=== PATIENT | female | born 1960 | race American Indian/Alaskan Native ===

== ENCOUNTER 2020-08-20 12:56 | Outpatient (CLI) | payer BC ==
--- NOTE | 2020-08-20 14:14 | Mammography Report ---
DIGITAL DIAGNOSTIC MAMMOGRAM WITH CAD CONVENTIONAL, 08/20/2020 CLINICAL INFORMATION / INDICATION: Postclip mammogram following right breast ultrasound-guided biops y. TECHNIQUE: Digital right mammographic imaging was performed. This examination was interpreted with the benefit of Computer-aided Detection analysis. COMPARISON: Prior mammogram 06/19/2020 FINDINGS: Breast Density: The breasts are heterogeneously dense, which may obscure small masses. Postbiopsy mammogram reveals a biopsy clip appropriately positioned at site of previously described m ass in the 2 to 3:00 position of the right breast, middle to posterior depth. IMPRESSION: 1. Appropriately positioned biopsy clip following right breast ultrasound-guided biopsy. Follow up recommendation: No recall. Post biopsy imaging. A "normal" or negative report should not discourage follow up or biopsy of a clinically significant f inding. A written summary of these findings will be mailed to the patient. The patient will be entered into a mammography reporting system which will generate a reminder letter for the patient's next appointmen t at the appropriate interval. According to the [employer], yearly mammograms are recommended starting at age 40 and continuing as long as a woman is in good health. Breast MRI is recommended for women with an maxime roximately 20-25% or greater lifetime risk of breast cancer, including women with a strong family his tory of breast or ovarian cancer and women who have been treated for Hodgkin's disease. Signer Name: Elham Goldman MD Signed: 08/20/2020 2:10 PM Workstation Name: [id number]
--- NOTE | 2020-08-20 14:15 | Ultrasound Report ---
ULTRASOUND GUIDED RIGHT BREAST BIOPSY, 08/20/2020 CLINICAL INFORMATION / INDICATION: ABNORMAL MAMMO. History presents for right breast ultrasound-guide d biopsy. COMPARISON: Prior outside mammogram and right breast ultrasound 07/08/2020 PROCEDURE: Risks, benefits, and indications to the procedure were discussed with the patient in detail, includin g bleeding, infection, hematoma formation, and inadequate tissue sampling. The patient agreed to proc eed with both verbal and written consent. A timeout procedure was performed with two patient identifi ers. The breast was prepped and draped in the usual sterile fashion. Lidocaine 1% with and without epineph rine were used for local anesthesia. Under direct ultrasound guidance, multiple core samples were obt ained of the mass in the right breast 2:30 position located 8 cm from the nipple. A biopsy marker wa s then placed. Biopsy device was removed and hemostasis achieved with manual pressure. A sterile dres sing was applied to the skin. The patient tolerated the procedure without difficulty. No complications were encountered. Postbiopsy instructions were discussed with the patient and given in writing. Specimens were sent to pathology. IMPRESSION: 1. Technically successful ultrasound guided right breast biopsy. Biopsy results are pending and will be reported in an addendum. Signer Name: Elham Goldman MD Signed: 08/20/2020 2:11 PM Workstation Name: [id number]
== END 2020-08-20 12:57 | disposition home or self-care (01) ==
LOC: SPVWC 12:56
PROVIDERS: ATTEND Surgery
DX: N63.12 Unspecified lump in the right breast, upper inner quadrant (principal); N60.31 Fibrosclerosis of right breast; N64.89 Other specified disorders of breast
CPT/HCPCS: 88305

== ENCOUNTER 2020-10-08 06:26 | Day surgery (SDC) | payer BC ==
[~2020-10-08 06:26] MED LIST: BACTERIOSTATIC SODIUM CHLORIDE 0.9% 30 ML VIAL INFILTRATI ONE; ceFAZolin/Water 2 GM/20 ML 2 GM/20 ML SYRINGE IV NR
[2020-10-08] MEDS ORDERED: LIDOCAINE (1%) 10 MG/1 ML VIAL 20 ML MDV ONE (07:12)
[2020-10-08] MEDS ORDERED: BUPIVACAINE/PF (0.5%) 5 MG/1 ML 30 ML VIAL INFILTRATI ONE ×3 (07:12→08:30)
[2020-10-08] MEDS ORDERED: MIDAZOLAM 2 MG/2 ML INJ ONE (07:28)
[2020-10-08] MEDS ORDERED: LACTATED RINGERS 1,000 ML ONE (07:28)
--- NOTE | 2020-10-08 07:29 | Anesthesia Day of Surgery ---
Anesthesia Day of Surgery - Day of Surgery Patient Examined: Yes Patient H&P Reviewed: Yes Patient is NPO: Yes Cardiac Clearance: Yes (From PCP)
[2020-10-08] MEDS ORDERED: ONDANSETRON 4 MG/2 ML INJ IV PRN (07:30)
[2020-10-08] MEDS ORDERED: LACTATED RINGERS 1,000 ML IV SCH (07:30)
[2020-10-08] MEDS ORDERED: dexAMETHasone 20 MG/5 ML VIAL ONE (07:30)
[2020-10-08] MEDS ORDERED: ONDANSETRON 4 MG/2 ML INJ ONE (07:30)
[2020-10-08] MEDS ORDERED: HYDROmorphone 1 MG/1 ML INJ IV PRN ×2 (07:30)
--- NOTE | 2020-10-08 07:30 | Anesthesia Consultation ---
Anesthesia Consult and Med Hx Date of service: 10/08/20 - Airway Anesthetic Teeth Evaluation: Chipped, Caps ROM Head & Neck: Adequate Mental/Hyoid Distance: Adequate Mallampati Class: Class II Intubation Access Assessment: Good - Pre-Operative Health Status ASA Pre-Surgery Classification: ASA2 Proposed Anesthetic Plan: General - Pulmonary Hx Asthma: Yes (Last rescue med 1 year ago) Hx Respiratory Symptoms: No (+2FS) - Cardiovascular System Hx Hypertension: Yes - Central Nervous System Hx Psychiatric Problems: No - Gastrointestinal Hx Gastroesophageal Reflux Disease: No - Endocrine Hx Renal Disease: No Hx Liver Disease: No Hx Non-Insulin Dependent Diabetes: No - Hematic Hx Sickle Cell Disease: No - Other Systems Hx Alcohol Use: Yes (Occas) Hx Cancer: No Hx Obesity: Yes
[2020-10-08] MEDS ORDERED: ePHEDrine SULFATE 50 MG/1 ML INJ ONE (07:35)
[2020-10-08] MEDS ORDERED: HYDROmorphone 1 MG/1 ML INJ ONE (07:38)
[2020-10-08] MEDS ORDERED: propofoL 200 MG/20 ML VIAL IV ONE (07:38)
[2020-10-08] MEDS ORDERED: SUCCINYLCHOLINE CHLORIDE 200 MG/10 ML INJ MDV ONE (07:39)
[2020-10-08] MEDS ORDERED: GLYCOPYRROLATE 0.4 MG/2 ML INJ ONE (07:39)
[2020-10-08] MEDS ORDERED: PHENYLEPHRINE/NS 1,000 MCG/10 ML SYRINGE (OR USE) IV ONE (07:39)
[2020-10-08] MEDS ORDERED: LIDOCAINE MPF (2%) 20 MG/1 ML VIAL 5 ML ONE (07:39)
[2020-10-08] MEDS ORDERED: LIDOCAINE (1%) 10 MG/1 ML VIAL 20 ML MDV INFILTRATI ONE ×2 (07:40→08:30)
[2020-10-08] MEDS ORDERED: WATER FOR IRRIG STERILE 1,500 ML BOTTLE IR ONE ×2 (07:41→09:11)
[2020-10-08] MEDS ORDERED: MIDAZOLAM 2 MG/2 ML INJ IV NR (08:00)
--- NOTE | 2020-10-08 09:47 | Short Stay Summary ---
Short Stay Documentation Date of service: 10/08/20 - History H&P: obtained from office - Allergies and Medications Current Medications: Allergies aspirin Allergy (Verified 09/30/20 13:21) Hives codeine Allergy (Verified 09/30/20 13:21) N&V Home Medications Medication Instructions Recorded Confirmed Last Taken Type Albuterol Sulfate [Proair 90 mcg IH PRN 10/08/20 10/08/20 9 Months Ago History Respiclick] ~01/08/20 Azelastine 0.1% (Nf) [Astelin (Nf)] 2 spray BN BID 10/08/20 10/08/20 1 Week Ago History ~10/01/20 Azelastine/Fluticasone 1 puff PO DAILY 10/08/20 10/08/20 1 Week Ago History [Azelastin-Flutic 137-50Mcg Spr] ~10/01/20 Fluticasone/Vilanterol [Breo 1 puff PO DAILY 10/08/20 10/08/20 10/08/20 05:30 History Ellipta 200-25 Mcg INH] Ibuprofen [Motrin 800 MG tab] 800 mg PO Q8HR PRN #12 tablet 10/08/20 Unknown Rx Ipratropium/Albuterol Sulfate 1 ampul IH Q8HR 10/08/20 10/08/20 1 Week Ago History [DUONEB *Not for PRN Use*] ~10/01/20 Montelukast [Singulair] 10 mg PO DAILY 10/08/20 10/08/20 1 Week Ago History ~10/01/20 Olmesartan (Nf) [Benicar (Nf)] 20 mg PO QDAY 10/08/20 10/08/20 1 Week Ago History ~10/01/20 Spironolactone [Aldactone] 50 mg PO BID 10/08/20 10/08/20 1 Week Ago History ~10/01/20 Active Medications Hydromorphone HCl (Hydromorphone 1 Mg/1 Ml Inj) 0.25 mg IV Q10MIN PRN PRN Reason: Pain, Moderate (4-6) Stop: 10/08/20 16:00 Hydromorphone HCl (Hydromorphone 1 Mg/1 Ml Inj) 0.5 mg IV Q10MIN PRN PRN Reason: Pain , Severe (7-10) Stop: 10/08/20 17:00 Cefazolin Sodium (Ancef/Sterile Water 2 Gm/20 Ml) 2 gm in 20 mls @ 80 mls/hr IV PREOP NR; Protocol Stop: 10/08/20 20:00 Lactated Ringer's (Lactated Ringers) 1,000 mls @ 125 mls/hr IV DIRECT MAMADOU Last Admin: 10/08/20 07:20 Dose: 125 mls/hr Documented by: Midazolam HCl (Midazolam 2 Mg/2 Ml Inj) 2 mg IV PREOP NR Stop: 10/08/20 23:59 Last Admin: 10/08/20 07:25 Dose: 2 mg Documented by: Ondansetron HCl (Ondansetron 4 Mg/2 Ml Inj) 4 mg IV ONCE PRN PRN Reason: Nausea And Vomiting Stop: 10/08/20 17:00 - Brief post op/procedure progress note Date of procedure: 10/08/20 Pre-op diagnosis: Right breast mass upper inner quadrant Post-op diagnosis: same Procedure: Right breast mass excisional biopsy of upper inner quadrant Anesthesia: GETA Findings: Right breast mass and clip present within radiographspecimen Surgeon: RAN GARZA Estimated blood loss: minimal Pathology: list Specimen disposition: to lab Condition: stable - Disposition Condition at discharge: Good Disposition: DC-01 TO HOME OR SELFCARE Short Stay Discharge Plan Activity: other (no heavy lifting) Diet: regular Wound: keep clean and dry (may shower in 48 hours; no baths; wear breast binder) Follow up with: RAN GARZA MD [Staff Physician] - 7 Days Prescriptions: Ibuprofen [Motrin 800 MG tab] 800 mg PO Q8HR PRN #12 tablet PRN Reason: Pain , Severe (7-10)
--- NOTE | 2020-10-08 09:58 | Operative Report ---
Operative Report Operative Report: Operative Report: October 08, 2020 Preoperative diagnosis: Right breast mass of the upper inner quadrant Postoperative diagnosis: Same Procedure: Complex right breast mass excisional biopsy of upper inner quadrant Surgeon: Xenia Rosenbaum MD Bar Steward: Jay Yee MD Anesthesia: General Findings: Right breast mass of upper inner quadrant Complications: None EBL: Minimal Disposition: PACU in good condition Indications for operative procedure: This is a 60-year-old young lady with recent abnormal screening mammogram from 06/19/2020. Diagnostic right mammogram 07/08/2020 lobulated circumscribed nodule at 3:00 position. Ultrasound findings 3.5 cm hypoechoic mass at 3:00 position 8 cm FN with recommendations for biopsy, BI-RADS 4. Ultrasound guided needle core biopsy performed on 08/20/20 with findings of benign breast tissue and pathology discordant. Recommendations to proceed with an excisional biopsy for a definitive diagnosis and to rule out malignancy. Patient wished to proceed with the above proceure. Procedure in detail: Patient was taken to the operating room and was laid supine. Gen. anesthesia was administered. Right breast and axilla were prepped and draped in the normal sterile operative fashion. Timeout was performed. Ultrasound was used as well identification of known breast mass at the 2:00 position 8 cm FN with clip present. Attention was then taken towards the right breast. Ultrasound was used as well. A periareolar breast incision was made at the 3:00 position with a 15 blade knife and dissection taken down to subcutaneous tissues. The superior breast tissues were opened anterior to the mass using the Bovie cautery. The right kapil st mass was the grasped and appropriately dissected free with the aid of the Bovie cautery and using blunt dissection. Complex excision performed. Hemostasis was obtained with the Bovie cautery. Specimen was sent to radiology with clip and mass present and then sent to pathology. The breast cavity was anesthetized with 1% lidocaine mixed with quarter percent Marcaine. The breast cavity was appropriately irrigated and suctioned. Hemostasis was noted. Deep breast tissue were approximated and closed using interrupted 3-0 Vicryl and the subcutaneous tissues approximated and closed using interrupted 3-0 Vicryl followed by closing of the skin with a running 4-0 Monocryl and dermabond. The patient tolerated surgery very well and she was awaken from anesthesia without any complication and transported to PACU in good condition.
[2020-10-08 11:25] VITALS: BP 117/62
--- NOTE | 2020-10-08 17:21 | Post Anesthesia Evaluation ---
- Post Anesthesia Evaluation Patient Participated: Yes Airway Patent: Yes Stable Respiratory Function: Yes Nausea/Vomiting: No Temp > 96.8F: Yes Pain Manageable: Yes Adequeate Hydration: Yes Anesthesia Complications: No Block Receding Appropriately: Not Applicable Patient on Ventilator: No
--- NOTE | 2020-10-09 15:09 | Mammography Report ---
EXAMINATION: Right breast surgical specimen radiograph, 10/08/2020 CLINICAL INFORMATION: History of right breast mass. Right breast mass excision. COMPARISON: Right diagnostic mammogram, 08/20/2020. Ultrasound-guided biopsy, 08/20/2020 FINDINGS: The specimen radiograph contains an oval density and associated biopsy clip. IMPRESSION: 1. Appearance of the right breast specimen radiograph as above. Signer Name: Odilia Brooks MD Signed: 10/09/2020 3:04 PM Workstation Name: [id number]
== END 2020-10-08 11:15 | disposition home or self-care (01) ==
LOC: OR 06:26
PROVIDERS: ATTEND Surgery
DX: N63.12 Unspecified lump in the right breast, upper inner quadrant (principal); I10 Essential (primary) hypertension; J45.909 Unspecified asthma, uncomplicated; Z88.5 Allergy status to narcotic agent; Z88.6 Allergy status to analgesic agent; Z79.899 Other long term (current) drug therapy; Z90.710 Acquired absence of both cervix and uterus; Z72.89 Other problems related to lifestyle; Z98.890 Other specified postprocedural states
CPT/HCPCS: 19125; 76098; 88305; 88307; J0330; J0690; J1100; J1170; J2250; J2370; J2405; J2704; J7120; U0003

== ENCOUNTER 2021-03-19 09:38 | Outpatient (CLI) | payer BC ==
--- NOTE | 2021-03-19 10:15 | Mammography Report ---
DIGITAL DIAGNOSTIC MAMMOGRAM WITH CAD CONVENTIONAL, 03/19/2021 CLINICAL INFORMATION / INDICATION: Patient presents for six-month follow-up following benign right br east excisional biopsy. D24.1 BENIGN NEOPLASM OF RT BREAST/ N60.81 MAMMARY DYSPLASIA TECHNIQUE: Digital right mammographic imaging was performed. This examination was interpreted with the benefit of Computer-aided Detection analysis. COMPARISON: Prior mammograms 08/20/2020 and 06/19/2020 FINDINGS: Breast Density: The breasts are heterogeneously dense, which may obscure small masses. No dominant mass, suspicious calcifications or architectural distortion in the right breast. There is new benign postsurgical change seen in the right breast with removal of the previously seen mass in the medial right breast. IMPRESSION: 1. New benign postsurgical change in the right breast. No suspicious mammographic abnormality identif ied. Follow up recommendation: Back to schedule. BI-RADS Category 2: Benign. A "normal" or negative report should not discourage follow up or biopsy of a clinically significant f inding. A written summary of these findings will be mailed to the patient. The patient will be entered into a mammography reporting system which will generate a reminder letter for the patient's next appointmen t at the appropriate interval. According to the [employer], yearly mammograms are recommended starting at age 40 and continuing as long as a woman is in good health. Breast MRI is recommended for women with an maxime roximately 20-25% or greater lifetime risk of breast cancer, including women with a strong family his tory of breast or ovarian cancer and women who have been treated for Hodgkin's disease. Signer Name: Elham Goldman MD Signed: 03/19/2021 10:10 AM Workstation Name: [id number]
== END 2021-03-19 09:39 | disposition home or self-care (01) ==
LOC: SPVWC 09:38
PROVIDERS: ATTEND Surgery
DX: D24.1 Benign neoplasm of right breast (principal); N60.81 Other benign mammary dysplasias of right breast; N64.89 Other specified disorders of breast